=== PATIENT | female | born 1975 | race African-American/Black ===

== ENCOUNTER → 2017-09-17 | Outpatient (CLI) | payer OTHER ==
--- NOTE | 2017-09-17 14:37 | MAMMOGRAPHY REPORT ---
UNILATERAL LEFT DIGITAL DIAGNOSTIC MAMMOGRAM TOMOSYNTHESIS AND TARGETED LEFT ULTRASOUND: 09/17/2017 CLINICAL HISTORY: 42-year-old woman with a history of prior reduction mammoplasty called back from [facility] screening mammogram at an outside institution for a 7 mm mass in the upper outer quadrant of t he left breast. No family history of breast cancer. TECHNIQUE: Spot compression left CC and MLO 2-D and tomosynthesis images were obtained. COMPARISON: Comparison is made to exam dated: 08/07/2017 mammogram. BREAST COMPOSITION: The tissue of the left breast is almost entirely fatty. FINDINGS: The spot compression views of the left breast demonstrate a persistent 6.5 mm circumscribed and lobulated mass in the upper outer middle one third of the left breast. No associated architectu ral distortion or microcalcification. No lucent central notch or feeding vessel is identified to con firm a benign intramammary lymph node. Targeted ultrasound was performed in the upper outer quadrant of the left breast. In the 2:00 axis, 12 cm from the nipple, there is a microlobulated mixed anechoic, hypoechoic and isoechoic cystic appe aring mass measuring 5.5 x 2.7 x 6.6 mm. This corresponds to the mammographic finding and could repr esent a complicated cyst or papillary lesion. It does not have the sonographic appearance of an intr amammary lymph node. Given that no prior mammograms are available to assess stability this lesion is indeterminate and definitive characterization with ultrasound guided cyst aspiration versus core nee dle biopsy is recommended. IMPRESSION: ACR BI-RADS CATEGORY 4: SUSPICIOUS, TARGETED ULTRASOUND ACR BI-RADS CATEGORY 4: SUSPICIO US There is a microlobulated, mixed anechoic and hypoechoic and isoechoic cystic appearing 6.6 mm mass i n the 2:00 left breast on ultrasound, which correlates with a mammographic mass in the left upper out er quadrant. This mass could represent a complicated cyst or papillary lesion. Definitive character ization with an ultrasound-guided cyst aspiration versus core needle biopsy is recommended. These results and limitations were discussed with the patient at the time of the exam. She tentative ly scheduled the biopsy prior to leaving our department. Approximately 10% of breast cancers are not detected with mammography. A negative mammographic report should not delay biopsy if a clinically suggestive mass is present. Olivia Smith M.D. ay/:09/17/2017 11:55:39 Moving Consultant: Zoe Monaco RT(R)(M), [facility] letter sent: Abnormal 4/5 BI-RADS Code: ACR BI-RADS Category 4: Suspicious Ultrasound BI-RADS: ACR BI-RADS Category 4: Suspici ous
== END | disposition home or self-care (01) ==
LOC: C.MAMM 11:06
PROVIDERS: ATTEND Physician Assistant
DX: N63.21 Unspecified lump in the left breast, upper outer quadrant (principal)

== ENCOUNTER → 2017-10-10 | Outpatient (CLI) | payer OTHER ==
--- NOTE | 2017-10-10 15:09 | MAMMOGRAPHY REPORT ---
ASPIRATION LEFT BREAST: 10/10/2017 CLINICAL HISTORY: Left 2:00 breast mass. PATIENT CONSENT: The procedure and risks of ultrasound-guided cyst aspiration were discussed in full with the patient. Both oral and written consents were obtained. PROCEDURE DESCRIPTION: With ultrasound guidance, aseptic technique, and 1% lidocaine as a local anest hetic, the mass of concern in the left 2:00 breast was aspirated to completion. Benign type yellow f luid was aspirated and discarded. Direct pressure was applied to the site immediately post procedure and hemostasis was achieved. The patient tolerated the procedure without complication. She was giv en wound care instructions. COMPARISON: Comparison is made to exams dated: 08/07/2017 mammogram, 09/17/2017 mammogram, and 018 ultrasound - [facility]. IMPRESSION: ASPIRATION Successful ultrasound-guided aspiration of the left 2:00 breast mass. Given that the mass completely aspirated, it is consistent with a benign cyst. The aspirated fluid was discarded. The patient can return to routine annual mammography, due July 2018. Trish Luna M.D. 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
== END | disposition home or self-care (01) ==
LOC: C.MAMM 11:11
PROVIDERS: ATTEND Physician Assistant
DX: N63.20 Unspecified lump in the left breast, unspecified quadrant (principal)